=== PATIENT | female | born 1960 | race Caucasian/White ===

== ENCOUNTER 2017-12-22 07:58 | Inpatient (IN) | payer OTHER ==
[~2017-12-22] VITALS: Ht 162.6 cm; Wt 87.5 kg
[2017-12-22 08:06] VITALS: BP 154/75
[2017-12-22] MEDS ORDERED: ZANAFLEX4 MG PO (08:11)
[2017-12-22] MEDS ORDERED: SEROQUEL 50 MG50 MG PO (08:11)
[2017-12-22] MEDS ORDERED: CELEXA10 MG PO (08:12)
[2017-12-22] MEDS ORDERED: BENZTROPINE MESY2 MG PO (08:13)
[2017-12-22 12:08] VITALS: BP 138/76
[2017-12-22 12:18] VITALS: BP 138/76
[2017-12-22 12:49] VITALS: BP 154/89
[2017-12-22 13:39] LABS: HEMATOCRIT 43.5 % (37.0-47.0); HEMOGLOBIN 14.7 gm/dL (12.0-15.0); MCH 30.5 pg (26.0-34.0); MCHC 33.8 g/dL (28.0-37.0); MCV 90.2 fL (80.0-100.0); RBC 4.82 mil/uL (4.20-5.00); RDW 13.6 % (10.5-14.5); WBC 10.7 thou/uL (4.0-11.0)
[2017-12-22 13:45] LABS: CALCIUM 9.4 mg/dL (8.5-10.1); CREATININE 0.8 mg/dL (0.6-1.0); POTASSIUM 3.6 mmol/L (3.5-5.1)
[2017-12-22 14:04] LABS: URINE BILIRUBIN NEGATIVE (Negative); URINE BLOOD NEGATIVE (Negative); URINE CLARITY CLEAR; URINE COLOR YELLOW; URINE GLUCOSE-RANDOM* NEGATIVE (Negative); URINE KETONES NEGATIVE (Negative); URINE LEUKOCYTES NEGATIVE (Negative); URINE NITRITE NEGATIVE (Negative); URINE PROTEIN (DIPSTICK) NEGATIVE (Negative); URINE UROBILINOGEN 0.2 E.U./dl (0.2-1.0)
[2017-12-22 15:08] VITALS: BP 128/96
[2017-12-22 19:16] VITALS: BP 141/86
[2017-12-23 03:27] VITALS: BP 142/70
[2017-12-23 07:10] VITALS: BP 133/78
[2017-12-23 15:20] VITALS: BP 111/76
[2017-12-23 19:59] VITALS: BP 141/116
[2017-12-23 21:40] VITALS: BP 128/83
[2017-12-24 07:15] VITALS: BP 126/76
[2017-12-24] MEDS ORDERED: ONDANSETRON HCL4 M1 PO (10:08)
[2017-12-24] MEDS ORDERED: CARBIDOPA-LEVO1 EAC9 PO (10:08)
[2017-12-24] MEDS ORDERED: ONDANSETRON HCL4 M2 PO (11:31)
[2017-12-24 11:53] VITALS: BP 126/76
== END 2017-12-24 12:51 | disposition home or self-care (01) | DRG 57 ==
LOC: ER 07:58 → 4W 11:54 → SICU 11:54 → EROBS 11:54 → 4W 12:34 → ENTRNSPT 12-23 16:54 → SICU 12-23 17:57 → EDTRNSPT 12-24 12:07 → EDTRNSPTSTS 12-24 12:12 → CMPTRNSPT 12-24 12:13 → SICU 12-24 12:51
PROVIDERS: Hospitalist
DX: G25.71 Drug induced akathisia (principal); G24.01 Drug induced subacute dyskinesia; F32.9 Major depressive disorder, single episode, unspecified; F41.0 Panic disorder [episodic paroxysmal anxiety]; R35.0 Frequency of micturition; E78.5 Hyperlipidemia, unspecified; I10 Essential (primary) hypertension; G89.29 Other chronic pain; M54.9 Dorsalgia, unspecified; T43.595A Adverse effect of other antipsychotics and neuroleptics, initial encounter; T43.225A Adverse effect of selective serotonin reuptake inhibitors, initial encounter; Y92.89 Other specified places as the place of occurrence of the external cause; Z79.899 Other long term (current) drug therapy; Z88.8 Allergy status to other drugs, medicaments and biological substances
CPT/HCPCS: 10040; 15002